=== PATIENT | female | born 1955 ===

== ENCOUNTER 2017-04-06 12:57 | Observation (INO) | payer MEDICAID ==
[2017-04-06 14:47] LABS: ADD MANUAL DIFF? NO
--- NOTE | 2017-04-06 14:51 | ED PDOC ---
Arrival/HPI - General Chief Complaint: GI Problem Time Seen by Provider: 04/06/17 13:55 Historian: Patient, Family - History of Present Illness Narrative History of Present Illness (Text): 04/06/17 14:49 62yr old female presents today with 3 episodes of bright red blood per rectum over the past 4 days. no fever/chills. no cp or sob. no vomiting/diarrhea. denies constipation. no fever/chills. pt denies abdominal pain. pt states she has noted changes in her stools over the past month. pt states her stool has become darker in color. pt states she has been having bright red bleeding when she has bowel movement. c/o increased fatigue. pt no urinary symptoms. pt also c/o bilateral ankle swelling. no leg pain. Symptom Onset: Gradual Symptom Course: Worsening Severity Level: 1 Past Medical History - Provider Review Nursing Documentation Reviewed: Yes - Travel History Have you recently traveled outside [place] w/in the past 3 mons?: No - Infectious Disease Hx of Infectious Diseases: None - Reproductive Menopause: Yes - Cardiac Hx Hypertension: Yes - Pulmonary Hx Respiratory Disorders: No - Neurological Hx Neurological Disorder: No - HEENT Hx HEENT Disorder: Yes Other/Comment: wears glasses - Renal Hx Renal Disorder: No - Endocrine/Metabolic Hx Endocrine Disorders: No - Hematological/Oncological Hx Blood Disorders: No - Integumentary Hx Dermatological Disorder: No - Musculoskeletal/Rheumatological Hx Musculoskeletal Disorders: No - Gastrointestinal Hx Gastrointestinal Disorders: No - Genitourinary/Gynecological Hx Genitourinary Disorders: No - Psychiatric Hx Psychophysiologic Disorder: No Hx Substance Use: No - Surgical History Other/Comment: vaginal birthsx2, chin tuck sx - Anesthesia Hx Anesthesia: Yes Hx Anesthesia Reactions: No Family/Social History - Physician Review Nursing Documentation Reviewed: Yes Family/Social History: Unknown Family HX Smoking Status: Never Smoked Hx Alcohol Use: No Hx Substance Use: No Allergies/Home Meds Allergies/Adverse Reactions: Allergies No Known Allergies Allergy (Verified 04/06/17 22:22) Home Medications: Home Meds Medication Instructions Recorded Confirmed Losartan [Cozaar] 100 mg PO DAILY 04/06/17 04/06/17 Review of Systems - Review of Systems Constitutional: Fatigue. absent: Fevers Respiratory: absent: SOB, Cough Cardiovascular: absent: Chest Pain, Palpitations Gastrointestinal: Abdominal Pain, Nausea, Vomiting, Hematochezia. absent: Constipation, Diarrhea, Appetite Changes, Hematemesis, Food Intolerance Genitourinary Female: absent: Dysuria Musculoskeletal: absent: Arthralgias, Back Pain, Neck Pain Skin: absent: Rash, Pruritis Neurological: absent: Headache, Dizziness Psychiatric: absent: Anxiety, Depression Physical Exam Vital Signs Reviewed: Yes Vital Signs Temp Pulse Resp BP Pulse Ox 04/06/17 17:30 89 04/06/17 15:00 92 H 19 138/67 92 L 04/06/17 13:11 97.8 F 109 H 21 187/75 H 99 Temperature: Afebrile Blood Pressure: Hypertensive Pulse: Tachycardic Respiratory Rate: Normal Appearance: Positive for: Well-Appearing, Non-Toxic, Comfortable Pain Distress: None Mental Status: Positive for: Alert and Oriented X 3 - Systems Exam Head: Present: Atraumatic Mouth: Present: Moist Mucous Membranes Neck: Present: Normal Range of Motion Respiratory/Chest: Present: Clear to Auscultation, Good Air Exchange. No: Respiratory Distress, Accessory Muscle Use Cardiovascular: Present: Regular Rate and Rhythm, Normal S1, S2. No: Murmurs Abdomen: Present: Normal Bowel Sounds. No: Tenderness, Distention, Peritoneal Signs, Rebound, Guarding Rectal: Present: Occult Blood, Melena, Hemorrhoids, Normal Rectal Tone. No: Gross Blood, Fissures Back: Present: Normal Inspection Upper Extremity: Present: Normal ROM Lower Extremity: Present: Normal ROM Neurological: Present: GCS=15, Speech Normal Skin: Present: Warm, Dry, Normal Color. No: Rashes Psychiatric: Present: Alert, Oriented x 3 Medical Decision Making ED Course and Treatment: 04/06/17 15:28 62yr old female with rectal bleeding x 3 days. Increased fatigue. cbc: hgb; 8.4 CMP; k; 3.5 type and screen: B+ pt wnl ptt wnl cxr; wnl ekg; normal sinus rhythm at 96 bpm normal axis normal intervals no ST elevations case discussed with dr. kirby; will admit to tele for rectal bleeding and anemia with heme + black stools. consult dr. stafford; call placed; awaiting call back. pt seen by medical oncologist; will transfuse 1 unit; consult GI. admit to tele. case discussed in depth with dr. david. 04/06/17 15:31 Impression; rectal bleeding, anemia admit to tele; - Lab Interpretations Lab Results: 04/06/17 14:40 04/06/17 14:40 Lab Results 04/06/17 14:40: Troponin I < 0.01 04/06/17 14:40: WBC 7.1, RBC 2.90 L, Hgb 8.4 L, Hct 25.2 L, MCV 86.9, MCH 29.0, MCHC 33.3, RDW 14.1, Plt Count 304, MPV 8.9, Gran % 60.5, Lymph % (Auto) 21.6 L , [place] % (Auto) 15.6 H, Eos % (Auto) 2.0, Baso % (Auto) 0.3, Gran # 4.32, Lymph # 1.5, [place] # 1.1 H, Eos # 0.1, Baso # 0.02 04/06/17 14:40: Blood Type B POSITIVE, Antibody Screen Negative, Crossmatch See Detail, BBK History Checked No verified bt 04/06/17 14:40: Sodium 137, Potassium 3.5 L, Chloride 102, Carbon Dioxide 27, Anion Gap 12, BUN 9, Creatinine 0.7, Est GFR ( Amer) > 60, Est GFR (Non- Af Amer) > 60, Random Glucose 100, Calcium 9.0, Total Bilirubin 0.5, AST 18, ALT 26, Alkaline Phosphatase 82, Total Protein 7.2, Albumin 3.8, Globulin 3.3, Albumin/Globulin Ratio 1.2 04/06/17 14:40: PT 11.3, INR 1.05, APTT 25.0 - RAD Interpretation Radiology Orders: 04/06/17 14:14 CHEST PORTABLE [RAD] Stat - Medication Orders Current Medication Orders: Acetaminophen (Tylenol 650 Mg Supp) 650 mg RC Q4H PRN PRN Reason: Fever >100.4 F Last Admin: 04/07/17 00:02 Dose: 650 mg Sodium Chloride (Sodium Chloride 0.9%) 1,000 mls @ 150 mls/hr IV .Q6H40M ACE Last Admin: 04/07/17 00:03 Dose: 150 mls/hr Vancomycin HCl (Vancomycin 1gm) 1 gm in 250 mls @ 167 mls/hr IVPB Q12H ACE PRN Reason: Protocol Piperacillin Sod/Tazobactam Sod (Zosyn 3.375 In Ns 100ml) 100 mls @ 200 mls/hr IVPB Q6 ACE Last Admin: 04/07/17 01:37 Dose: 200 mls/hr Ondansetron HCl (Zofran Inj) 4 mg IVP Q6 PRN PRN Reason: Nausea/Vomiting Pantoprazole Sodium (Protonix Inj) 40 mg IVP DAILY ACE Discontinued Medications Vancomycin HCl (Vancomycin 1gm) 1 gm in 250 mls @ 167 mls/hr IVPB STAT STA PRN Reason: Protocol Stop: 04/07/17 00:49 Last Admin: 04/07/17 00:03 Dose: 167 mls/hr Pantoprazole Sodium (Protonix Inj) 40 mg IVP STAT STA Stop: 04/06/17 15:17 Last Admin: 04/06/17 15:42 Dose: 40 mg Pantoprazole Sodium (Protonix Inj) 40 mg IVP Q12 ACE Pneumococcal Polyvalent Vaccine (Pneumovax 23 Vaccine) 0.5 ml IM .ONCE ONE Stop: 04/06/17 23:09 Potassium Chloride (K-Dur 20 Meq Er Tab) 20 meq PO STAT STA Stop: 04/06/17 17:24 Last Admin: 04/06/17 17:25 Dose: 20 meq Disposition/Present on Arrival - Present on Arrival Any Indicators Present on Arrival: No History of DVT/PE: No History of Uncontrolled Diabetes: No Urinary Catheter: No History of Decub. Ulcer: No History Surgical Site Infection Following: None - Disposition Have Diagnosis and Disposition been Completed?: Yes Diagnosis: Rectal bleeding, Anemia Disposition: HOSPITALIZED Disposition Time: 15:15 Patient Plan: Admission Patient Problems: Current Active Problems Problem Status Onset Anemia Acute Rectal bleeding Acute Condition: FAIR
--- NOTE | 2017-04-06 14:53 | RAD ---
HISTORY: rectal bleeding COMPARISON: No prior. FINDINGS: LUNGS: No active pulmonary disease. PLEURA: No significant pleural effusion identified, no pneumothorax apparent. CARDIOVASCULAR: Normal. OSSEOUS STRUCTURES: No significant abnormalities. VISUALIZED UPPER ABDOMEN: Normal. OTHER FINDINGS: None. IMPRESSION: No active disease.
[2017-04-06 14:56] LABS: BASO # 0.02 K/mm3 (0.0-2.0); BASO % 0.3 % (0.0-3.0); EOS # 0.1 (0.0-0.7); GRAN # 4.32 (1.4-6.5); GRAN % 60.5 % (50.0-68.0); HEMATOCRIT 25.2 % (36.0-48.0); LYMPH # 1.5 (1.2-3.4); LYMPH % 21.6 % (22.0-35.0); MEAN CELL VOLUME 86.9 fL (80.0-105.0); MEAN CORPUSCULAR HGB CONC 33.3 g/dl (31.0-37.0); MEAN PLATELET VOLUME 8.9 fl (7.0-11.0); MONO # 1.1 (0.1-0.6); MONO % 15.6 % (1.0-6.0); PLATELET COUNT 304 10^3/uL (120.0-450.0); RED CELL DISTRIBUTION WIDTH 14.1 % (11.5-14.5); WHITE BLOOD COUNT 7.1 10^3/ul (4.5-11.0)
[2017-04-06 15:03] LABS: ALB/GLOB RATIO 1.2 (1.1-1.8); ALKALINE PHOSPHATASE 82 U/L (38-133); ALT/SGPT 26 U/L (7-56); AST/SGOT 18 U/L (15-39); BILIRUBIN,TOTAL 0.5 mg/dL (0.2-1.3); BLOOD UREA NITROGEN 9 mg/dL (7-21); CARBON DIOXIDE 27 mmol/L (21-33); CHLORIDE 102 mmol/L (98-107); GFR AFRICAN-AMERICAN > 60; GLUCOSE,RANDOM 100 mg/dL (70-110); POTASSIUM 3.5 mmol/L (3.6-5.0); SODIUM 137 mmol/L (132-148); TOTAL PROTEIN 7.2 g/dL (5.8-8.3)
[2017-04-06 15:05] LABS: INR 1.05 (0.93-1.08)
--- NOTE | 2017-04-06 16:04 | CP.PCM.HP ---
<Mario Serrato - Last Filed: 04/06/17 17:21> History of Present Illness - History of Present Illness History of Present Illness: CC: Bloody Diarrhea 62yo F with PMHx of HTN here for evaluation of bloody BM. Patient reports one month hx of general fatigue. On Thursday, 3 days ago, Patient had a large episode of diarrhea with liquid bright red blood. Thursday, she had another episode of bloody diarrhea, another episode on thursday and another one early this morning. Patient states that the episodes have been clearing up with less red blood in each successive BM. Denies ever having similar episodes in the past. She also c/ o Nausea and one episode of vomit, non-bloody non-bilious on Thursday. She also c/o some chest pain described as pressure which radiates to the right shoulder and back, lasted a few mins which occurred on Thursday. No diaphoresis. Denies any weight loss. No Abdominal pain. Does c/o cough, non-productive. subjective fevers of 99F at home with associated chills. Denies any sick contacts. Denies ever having any colonoscopy or EGD done in the past. Denies hx of diverticulosis. Denies any vaginal bleeding. Rectal exam performed by ER staff, no gross blood. Hemacult positive. External hemorrhoids. PMHx: HTN PSHx: denies Family Hx: Dad - Heart disease Social Hx: Denies Tobacco, Denies ETOH, Denies illicit drugs. Lives in [place]. Visiting Daughter. NKDA Meds: Losartan 100mg PO Daily Present on Admission - Present on Admission Any Indicators Present on Admission: No Review of Systems - Review of Systems All systems: reviewed and no additional remarkable complaints except - Constitutional Constitutional: Chills, Fatigue, Fever, Lethargy. absent: Weight Loss - EENT Eyes: absent: Change in Vision Ears: absent: Ear Pain - Cardiovascular Cardiovascular: Chest Pain. absent: Diaphoresis, Dyspnea - Respiratory Respiratory: Cough. absent: Dyspnea - Gastrointestinal Gastrointestinal: Hematochezia, Nausea, Vomiting. absent: Abdominal Pain, Melena - Musculoskeletal Musculoskeletal: Back Pain - Neurological Neurological: absent: Focal Weakness - Psychiatric Psychiatric: absent: Anxiety, Depression Past Patient History - Infectious Disease Hx of Infectious Diseases: None - Past Medical History & Family History Past Family History: Reviewed and not pertinent - Past Social History Smoking Status: Never Smoked - CARDIAC Hx Hypertension: Yes - PULMONARY Hx Respiratory Disorders: No - NEUROLOGICAL Hx Neurological Disorder: No - HEENT Hx HEENT Problems: Yes Other/Comment: wears glasses - RENAL Hx Chronic Kidney Disease: No - ENDOCRINE/METABOLIC Hx Endocrine Disorders: No - HEMATOLOGICAL/ONCOLOGICAL Hx Blood Disorders: No - INTEGUMENTARY Hx Dermatological Problems: No - MUSCULOSKELETAL/RHEUMATOLOGICAL Hx Musculoskeletal Disorders: No - GASTROINTESTINAL Hx Gastrointestinal Disorders: No - GENITOURINARY/GYNECOLOGICAL Hx Genitourinary Disorders: No - PSYCHIATRIC Hx Psychophysiologic Disorder: No Hx Substance Use: No - SURGICAL HISTORY Other/Comment: vaginal birthsx2, chin tuck sx - ANESTHESIA Hx Anesthesia: Yes Hx Anesthesia Reactions: No Meds Allergies/Adverse Reactions: Allergies Allergy/AdvReac Type Severity Reaction Status Date / Time No Known Allergies Allergy Verified 04/06/17 22:22 Physical Exam - Constitutional Appears: Well, No Acute Distress - Head Exam Head Exam: ATRAUMATIC, NORMAL INSPECTION, NORMOCEPHALIC - Eye Exam Eye Exam: EOMI, Normal appearance. absent: Scleral icterus - ENT Exam ENT Exam: Mucous Membranes Moist - Respiratory Exam Respiratory Exam: Clear to Auscultation Bilateral. absent: Rales, Rhonchi, Wheezes - Cardiovascular Exam Cardiovascular Exam: Tachycardia, +S1, +S2. absent: JVD - GI/Abdominal Exam GI & Abdominal Exam: Soft. absent: Distended, Guarding, Rebound, Rigid, Tenderness - Extremities Exam Extremities exam: Positive for: normal inspection. Negative for: calf tenderness, pedal edema - Back Exam Back exam: NORMAL INSPECTION - Neurological Exam Neurological exam: Alert, Oriented x3 - Psychiatric Exam Psychiatric exam: Normal Affect, Normal Mood - Skin Skin Exam: Dry, Intact, Normal Color, Warm Results - Vital Signs Recent Vital Signs: Last Vital Signs Temp 97.8 F 04/06/17 13:11 Pulse 92 H 04/06/17 15:00 Resp 19 04/06/17 15:00 BP 138/67 04/06/17 15:00 Pulse Ox 92 L 04/06/17 15:00 - Labs Result Diagrams: 04/06/17 14:40 04/06/17 14:40 Labs: Laboratory Results - last 24 hr 04/06/17 04/06/17 04/06/17 14:40 14:40 14:40 WBC RBC Hgb Hct MCV MCH MCHC RDW Plt Count MPV Gran % Lymph % (Auto) [place] % (Auto) Eos % (Auto) Baso % (Auto) Gran # Lymph # [place] # Eos # Baso # PT 11.3 INR 1.05 APTT 25.0 Sodium 137 Potassium 3.5 L Chloride 102 Carbon Dioxide 27 Anion Gap 12 BUN 9 Creatinine 0.7 Est GFR ( Amer) > 60 Est GFR (Non-Af Amer) > 60 Random Glucose 100 Calcium 9.0 Total Bilirubin 0.5 AST 18 ALT 26 Alkaline Phosphatase 82 Total Protein 7.2 Albumin 3.8 Globulin 3.3 Albumin/Globulin Ratio 1.2 Blood Type B POSITIVE Antibody Screen Negative BBK History Checked No verified bt 04/06/17 14:40 WBC 7.1 RBC 2.90 L Hgb 8.4 L Hct 25.2 L MCV 86.9 MCH 29.0 MCHC 33.3 RDW 14.1 Plt Count 304 MPV 8.9 Gran % 60.5 Lymph % (Auto) 21.6 L [place] % (Auto) 15.6 H Eos % (Auto) 2.0 Baso % (Auto) 0.3 Gran # 4.32 Lymph # 1.5 [place] # 1.1 H Eos # 0.1 Baso # 0.02 PT INR APTT Sodium Potassium Chloride Carbon Dioxide Anion Gap BUN Creatinine Est GFR ( Amer) Est GFR (Non-Af Amer) Random Glucose Calcium Total Bilirubin AST ALT Alkaline Phosphatase Total Protein Albumin Globulin Albumin/Globulin Ratio Blood Type Antibody Screen BBK History Checked Assessment & Plan - Assessment and Plan (Free Text) Assessment: 62yo F with PMHx of HTN here for lower GI bleed 1. Lower GI Bleed multiple episodes of bloody BMs Tacycardic, normotensive Hb 8.4 Symptomatic anemia Transfuse 1u pRBCs Protonix 40mg IV daily NPO except meds IVF @ 150 Zofran prn monitor serial CBCs GI consult, Dr. Smith, appreciate recs 2. Atypical Chest pain r/o demand ischemia currently resolved f/u STAT EKG serial troponins 3. Hx of HTN hold home med, Losartan due acute blood loss 4. PPx SCDs Protonix 40mg IV Daily Discussed case with Dr. Guillermo Serrato PGY1 <Guillermo BELCHER,Ja - Last Filed: 04/07/17 11:53> Results - Vital Signs Recent Vital Signs: Last Vital Signs Temp 99.5 F 04/07/17 06:00 Pulse 91 H 04/07/17 06:00 Resp 20 04/07/17 06:00 BP 129/58 L 04/07/17 06:00 Pulse Ox 99 04/07/17 06:00 - Labs Result Diagrams: 04/07/17 08:15 04/07/17 08:15 Labs: Laboratory Results - last 24 hr 04/06/17 04/06/17 04/06/17 17:06 22:20 23:30 WBC 6.9 7.2 RBC 2.80 L 2.82 L Hgb 8.2 L 8.2 L Hct 24.5 L 24.6 L MCV 87.5 87.2 MCH 29.3 29.1 MCHC 33.5 33.3 RDW 14.2 14.1 Plt Count 318 320 MPV 8.8 8.8 Gran % 58.3 Lymph % (Auto) 28.0 [place] % (Auto) 11.5 H Eos % (Auto) 1.9 Baso % (Auto) 0.3 Gran # 4.21 Lymph # 2.0 [place] # 0.8 H Eos # 0.1 Baso # 0.02 Sodium Potassium Chloride Carbon Dioxide Anion Gap BUN Creatinine Est GFR ( Amer) Est GFR (Non-Af Amer) Random Glucose Calcium Phosphorus Magnesium Total Bilirubin AST ALT Alkaline Phosphatase Troponin I Total Protein Albumin Globulin Albumin/Globulin Ratio Blood Type Confirm B POSITIVE 04/07/17 04/07/17 08:15 08:15 WBC 7.0 RBC 3.18 L Hgb 9.3 L Hct 27.6 L MCV 86.8 MCH 29.2 MCHC 33.7 RDW 14.3 Plt Count 293 MPV 8.5 Gran % 61.4 Lymph % (Auto) 24.2 [place] % (Auto) 11.9 H Eos % (Auto) 2.4 Baso % (Auto) 0.1 Gran # 4.28 Lymph # 1.7 [place] # 0.8 H Eos # 0.2 Baso # 0.01 Sodium 141 Potassium 3.5 L Chloride 106 Carbon Dioxide 26 Anion Gap 13 BUN 7 Creatinine 0.8 Est GFR ( Amer) > 60 Est GFR (Non-Af Amer) > 60 Random Glucose 98 Calcium 8.4 Phosphorus 3.7 Magnesium 2.1 Total Bilirubin 0.9 AST 17 ALT 26 Alkaline Phosphatase 76 Troponin I < 0.01 Total Protein 6.8 Albumin 3.5 Globulin 3.3 Albumin/Globulin Ratio 1.1 Blood Type Confirm Attending/Attestation - Attestation I have fully participated in the care of the patient.: Yes I have reviewed all pertinent clinical information: Yes Notes (Text): Patient was seen and examined with medical appointment scheduler .Agreed with resident assessment and plan. 62 Yrs old Female with PMH of HTN is admitted with symptomatic anemia due to lower GI bleeding.Lower GI bleeding is not associated with pain, etiology Diverticulosis vs Interneal hemorrhoid.Patient will be admitted in the hospital , we will transfuse one unit of PRBC , will monitor hemoglobin and hematocrit and will get GI evaluation for Colonoscopy. Chest pain on side of chest with coughing is atypical in nature, EKG is negative for ischemic changes, we will get serial troponin and will monitor patient in tele. Management plan was discussed in detail with patient and son. Education was provided.
[2017-04-06] MEDS: Sodium Chloride 0.9% 1,000 ML IV SCH (16:45)
[2017-04-06] MEDS ORDERED: Potassium Chloride 20 mEq ER Tab PO STA (17:23)
[2017-04-06 22:39] LABS: HEMATOCRIT 24.5 % (36.0-48.0); MEAN CELL VOLUME 87.5 fL (80.0-105.0); MEAN CORPUSCULAR HEMOGLOBIN 29.3 pg (25.0-35.0); MEAN CORPUSCULAR HGB CONC 33.5 g/dl (31.0-37.0); MEAN PLATELET VOLUME 8.8 fl (7.0-11.0); RED CELL DISTRIBUTION WIDTH 14.2 % (11.5-14.5); WHITE BLOOD COUNT 6.9 10^3/ul (4.5-11.0)
[2017-04-06 23:08] VITALS: BMI 28.5
[2017-04-06] MEDS ORDERED: Pneumococcal 23-Valent Vaccine IM ONE (23:08)
[2017-04-06] MEDS ORDERED: Vancomycin 1gm in NS 250ml 1 GM/250 ML BAG IVPB STA (23:20)
[2017-04-06] MEDS ORDERED: Piperacillin/Tazobact 3.375 gm Inj IVPB SCH (23:30)
[2017-04-07] MEDS: Sodium Chloride 0.9% 1,000 ML IV SCH ×3 (00:03→12:51)
[2017-04-07 00:08] LABS: ADD MANUAL DIFF? NO
[2017-04-07 00:20] LABS: BASO # 0.02 K/mm3 (0.0-2.0); BASO % 0.3 % (0.0-3.0); EOS # 0.1 (0.0-0.7); EOS % 1.9 % (1.5-5.0); GRAN # 4.21 (1.4-6.5); GRAN % 58.3 % (50.0-68.0); HEMATOCRIT 24.6 % (36.0-48.0); MEAN CELL VOLUME 87.2 fL (80.0-105.0); MEAN CORPUSCULAR HEMOGLOBIN 29.1 pg (25.0-35.0); MEAN CORPUSCULAR HGB CONC 33.3 g/dl (31.0-37.0); MEAN PLATELET VOLUME 8.8 fl (7.0-11.0); MONO # 0.8 (0.1-0.6); MONO % 11.5 % (1.0-6.0); PLATELET COUNT 320 10^3/uL (120.0-450.0); RED CELL DISTRIBUTION WIDTH 14.1 % (11.5-14.5); WHITE BLOOD COUNT 7.2 10^3/ul (4.5-11.0)
[2017-04-07] MEDS: Piperacillin/Tazobact 3.375 gm 100 ML IVPB SCH ×2 (01:37→05:32)
[2017-04-07 03:39] VITALS: O2SAT 99
[2017-04-07 05:13] VITALS: RESP 20
[2017-04-07 08:19] LABS: ADD MANUAL DIFF? NO
[2017-04-07 08:25] LABS: BASO # 0.01 K/mm3 (0.0-2.0); BASO % 0.1 % (0.0-3.0); EOS # 0.2 (0.0-0.7); EOS % 2.4 % (1.5-5.0); GRAN # 4.28 (1.4-6.5); GRAN % 61.4 % (50.0-68.0); HEMATOCRIT 27.6 % (36.0-48.0); LYMPH # 1.7 (1.2-3.4); LYMPH % 24.2 % (22.0-35.0); MEAN CELL VOLUME 86.8 fL (80.0-105.0); MEAN CORPUSCULAR HEMOGLOBIN 29.2 pg (25.0-35.0); MEAN CORPUSCULAR HGB CONC 33.7 g/dl (31.0-37.0); MEAN PLATELET VOLUME 8.5 fl (7.0-11.0); MONO # 0.8 (0.1-0.6); MONO % 11.9 % (1.0-6.0); PLATELET COUNT 293 10^3/uL (120.0-450.0); RED CELL DISTRIBUTION WIDTH 14.3 % (11.5-14.5)
[2017-04-07 08:41] LABS: ALB/GLOB RATIO 1.1 (1.1-1.8); ALKALINE PHOSPHATASE 76 U/L (38-133); ALT/SGPT 26 U/L (7-56); AST/SGOT 17 U/L (15-39); BILIRUBIN,TOTAL 0.9 mg/dL (0.2-1.3); BLOOD UREA NITROGEN 7 mg/dL (7-21); CALCIUM 8.4 mg/dL (8.4-10.5); CARBON DIOXIDE 26 mmol/L (21-33); CHLORIDE 106 mmol/L (98-107); GFR AFRICAN-AMERICAN > 60; GLUCOSE,RANDOM 98 mg/dL (70-110); MAGNESIUM 2.1 mg/dL (1.7-2.2); PHOSPHOROUS 3.7 mg/dL (2.5-4.5); POTASSIUM 3.5 mmol/L (3.6-5.0); SODIUM 141 mmol/L (132-148); TOTAL PROTEIN 6.8 g/dL (5.8-8.3)
[2017-04-07 08:49] LABS: TROPONIN I < 0.01 ng/mL
--- NOTE | 2017-04-07 08:54 | CP.PCM.CON ---
<Kev Randolph - Last Filed: 04/07/17 12:54> History of Present Illness - History of Present Illness History of Present Illness: PGY4 GI Fellow Consult Note Patient is a 62yo female with PMHx significant for hypertension who presented to the ED with 3 days of rectal bleeding and fatigue. Patient is in from [place], [place] visiting her daughter. She states that Thursday afternoon she developed abdominal cramping and had an episode of loose/watery stool with bright red blood. She had 3 more episodes of diarrhea that day, each time with small amounts of fresh red blood. Thursday and Thursday she had one episode each and decided to come to the ED for further evaluation. She denies ever having symptoms like this in the past but does admit to having suffered with hemorrhoids previously. Denies any weight loss, abdominal pain, fever, chills, nausea, vomiting. She has never had screening colonoscopy. PMHx: HTN PSHx: Denies FHx: Father - hemorrhoids, CAD Social: Denies tobacco, EtOH or illicit drug use Endo: No prior endoscopic evaluation Review of Systems - Constitutional Constitutional: absent: Anorexia, Chills, Fever - EENT Eyes: absent: Change in Vision Nose/Mouth/Throat: absent: Sore Throat - Cardiovascular Cardiovascular: absent: Chest Pain, Dyspnea, Edema - Respiratory Respiratory: absent: Cough, Dyspnea, Hemoptysis - Gastrointestinal Gastrointestinal: Cramping, Diarrhea, Hematochezia. absent: Abdominal Pain, Bloating, Constipation, Dysphagia, Heartburn, Hematemesis, Loose Stools, Melena , Nausea, Temesmus, Vomiting - Genitourinary Genitourinary: absent: Dysuria, Urinary Frequency, Urinary Urgency - Musculoskeletal Musculoskeletal: absent: Back Pain, Neck Pain - Integumentary Integumentary: absent: New Lesions, Rash - Neurological Neurological: absent: Dizziness, Numbness, Focal Weakness - Psychiatric Psychiatric: absent: Anxiety, Depression - Endocrine Endocrine: absent: Polydipsia, Polyphagia, Polyuria - Hematologic/Lymphatic Hematologic: absent: Easy Bleeding, Easy Bruising, Lymphadenopathy Past Patient History - Infectious Disease Hx of Infectious Diseases: None - Past Medical History & Family History Past Family History: Reviewed and not pertinent - Past Social History Smoking Status: Never Smoked - CARDIAC Hx Hypertension: Yes - PULMONARY Hx Respiratory Disorders: No - NEUROLOGICAL Hx Neurological Disorder: No - HEENT Hx HEENT Problems: Yes Other/Comment: wears glasses - RENAL Hx Chronic Kidney Disease: No - ENDOCRINE/METABOLIC Hx Endocrine Disorders: No - HEMATOLOGICAL/ONCOLOGICAL Hx Blood Disorders: No - INTEGUMENTARY Hx Dermatological Problems: No - MUSCULOSKELETAL/RHEUMATOLOGICAL Hx Musculoskeletal Disorders: No - GASTROINTESTINAL Hx Gastrointestinal Disorders: No - GENITOURINARY/GYNECOLOGICAL Hx Genitourinary Disorders: No - PSYCHIATRIC Hx Psychophysiologic Disorder: No Hx Substance Use: No - SURGICAL HISTORY Other/Comment: vaginal birthsx2, chin tuck sx - ANESTHESIA Hx Anesthesia: Yes Hx Anesthesia Reactions: No Meds Allergies/Adverse Reactions: Allergies Allergy/AdvReac Type Severity Reaction Status Date / Time No Known Allergies Allergy Verified 04/06/17 22:22 - Medications Medications: Current Medications Acetaminophen (Tylenol 650 Mg Supp) 650 mg RC Q4H PRN PRN Reason: Fever >100.4 F Last Admin: 04/07/17 00:02 Dose: 650 mg Sodium Chloride (Sodium Chloride 0.9%) 1,000 mls @ 150 mls/hr IV .Q6H40M [facility] Last Admin: 04/07/17 06:27 Dose: Not Given Vancomycin HCl (Vancomycin 1gm) 1 gm in 250 mls @ 167 mls/hr IVPB Q12H ACE PRN Reason: Protocol Piperacillin Sod/Tazobactam Sod (Zosyn 3.375 In Ns 100ml) 100 mls @ 200 mls/hr IVPB Q6 [facility] Last Admin: 04/07/17 05:32 Dose: 200 mls/hr Ondansetron HCl (Zofran Inj) 4 mg IVP Q6 PRN PRN Reason: Nausea/Vomiting Pantoprazole Sodium (Protonix Inj) 40 mg IVP DAILY [facility] Physical Exam - Constitutional Appears: Non-toxic, No Acute Distress - Eye Exam Eye Exam: EOMI, PERRL - ENT Exam ENT Exam: Mucous Membranes Moist - Respiratory Exam Respiratory Exam: Clear to Auscultation Bilateral. absent: Rales, Rhonchi, Wheezes - Cardiovascular Exam Cardiovascular Exam: RRR, +S1, +S2 - GI/Abdominal Exam GI & Abdominal Exam: Normal Bowel Sounds, Soft. absent: Distended, Firm, Guarding, Organomegaly, Rigid, Tenderness - Rectal Exam Rectal Exam: Hemorrhoids (internal). absent: Black Stool, Bloody Stool Additional comments: brown stool - Extremities Exam Extremities exam: Positive for: normal inspection. Negative for: pedal edema - Neurological Exam Neurological exam: Alert, Oriented x3 - Psychiatric Exam Psychiatric exam: Normal Affect, Normal Mood - Skin Skin Exam: Dry, Warm Results - Vital Signs Recent Vital Signs: Last Vital Signs Temp 99.5 F 04/07/17 06:00 Pulse 91 H 04/07/17 06:00 Resp 20 04/07/17 06:00 BP 129/58 L 04/07/17 06:00 Pulse Ox 99 04/07/17 06:00 - Labs Result Diagrams: 04/07/17 08:15 04/07/17 08:15 Labs: Laboratory Results - last 24 hr 04/06/17 04/06/17 04/06/17 17:06 22:20 23:30 WBC 6.9 7.2 RBC 2.80 L 2.82 L Hgb 8.2 L 8.2 L Hct 24.5 L 24.6 L MCV 87.5 87.2 MCH 29.3 29.1 MCHC 33.5 33.3 RDW 14.2 14.1 Plt Count 318 320 MPV 8.8 8.8 Gran % 58.3 Lymph % (Auto) 28.0 Darke % (Auto) 11.5 H Eos % (Auto) 1.9 Baso % (Auto) 0.3 Gran # 4.21 Lymph # 2.0 Darke # 0.8 H Eos # 0.1 Baso # 0.02 Sodium Potassium Chloride Carbon Dioxide Anion Gap BUN Creatinine Est GFR ( Amer) Est GFR (Non-Af Amer) Random Glucose Calcium Phosphorus Magnesium Total Bilirubin AST ALT Alkaline Phosphatase Troponin I Total Protein Albumin Globulin Albumin/Globulin Ratio Blood Type Confirm B POSITIVE 04/07/17 04/07/17 08:15 08:15 WBC 7.0 RBC 3.18 L Hgb 9.3 L Hct 27.6 L MCV 86.8 MCH 29.2 MCHC 33.7 RDW 14.3 Plt Count 293 MPV 8.5 Gran % 61.4 Lymph % (Auto) 24.2 Darke % (Auto) 11.9 H Eos % (Auto) 2.4 Baso % (Auto) 0.1 Gran # 4.28 Lymph # 1.7 Darke # 0.8 H Eos # 0.2 Baso # 0.01 Sodium 141 Potassium 3.5 L Chloride 106 Carbon Dioxide 26 Anion Gap 13 BUN 7 Creatinine 0.8 Est GFR ( Amer) > 60 Est GFR (Non-Af Amer) > 60 Random Glucose 98 Calcium 8.4 Phosphorus 3.7 Magnesium 2.1 Total Bilirubin 0.9 AST 17 ALT 26 Alkaline Phosphatase 76 Troponin I < 0.01 Total Protein 6.8 Albumin 3.5 Globulin 3.3 Albumin/Globulin Ratio 1.1 Blood Type Confirm Assessment & Plan - Assessment and Plan (Free Text) Assessment: Patient is a 62yo female with PMHx significant for hypertension who presented to the ED with 3 days of rectal bleeding and fatigue. -Hematochezia, anemia -Internal hemorrhoids Plan: -Will start Anusol-HC BID for two weeks -No episodes of hematochezia yesterday or today -HGB stable, improved following 1 unit PRBCs yesterday -Iron studies would be compromised by recent transfusion -Diet as tolerated -Recommend outpatient follow up in [place] or in [place], [place] for EGD/screening colonoscopy - Date & Time Date: 04/07/17 Time: 07:10 <Anthony Baumann - Last Filed: 04/07/17 13:12> Meds - Medications Medications: Current Medications Acetaminophen (Tylenol 650 Mg Supp) 650 mg RC Q4H PRN PRN Reason: Fever >100.4 F Last Admin: 04/07/17 00:02 Dose: 650 mg Hydrocortisone (Anusol-Hc) 25 mg RC BID [facility] Stop: 04/21/17 10:01 Last Admin: 04/07/17 10:13 Dose: 25 mg Sodium Chloride (Sodium Chloride 0.9%) 1,000 mls @ 150 mls/hr IV .Q6H40M [facility] Last Admin: 04/07/17 12:51 Dose: 150 mls/hr Vancomycin HCl (Vancomycin 1gm) 1 gm in 250 mls @ 167 mls/hr IVPB Q12H ACE PRN Reason: Protocol Last Admin: 04/07/17 12:38 Dose: 167 mls/hr Piperacillin Sod/Tazobactam Sod (Zosyn 3.375 In Ns 100ml) 100 mls @ 200 mls/hr IVPB Q6 [facility] Last Admin: 04/07/17 05:32 Dose: 200 mls/hr Ondansetron HCl (Zofran Inj) 4 mg IVP Q6 PRN PRN Reason: Nausea/Vomiting Pantoprazole Sodium (Protonix Inj) 40 mg IVP DAILY [facility] Last Admin: 04/07/17 10:14 Dose: 40 mg Results - Vital Signs Recent Vital Signs: Last Vital Signs Temp 98.1 F 04/07/17 11:47 Pulse 89 04/07/17 11:47 Resp 20 04/07/17 11:47 BP 140/79 04/07/17 11:47 Pulse Ox 99 04/07/17 06:00 - Labs Result Diagrams: 04/07/17 08:15 04/07/17 08:15 Labs: Laboratory Results - last 24 hr 04/06/17 04/06/17 04/06/17 17:06 22:20 23:30 WBC 6.9 7.2 RBC 2.80 L 2.82 L Hgb 8.2 L 8.2 L Hct 24.5 L 24.6 L MCV 87.5 87.2 MCH 29.3 29.1 MCHC 33.5 33.3 RDW 14.2 14.1 Plt Count 318 320 MPV 8.8 8.8 Gran % 58.3 Lymph % (Auto) 28.0 Darke % (Auto) 11.5 H Eos % (Auto) 1.9 Baso % (Auto) 0.3 Gran # 4.21 Lymph # 2.0 Darke # 0.8 H Eos # 0.1 Baso # 0.02 Sodium Potassium Chloride Carbon Dioxide Anion Gap BUN Creatinine Est GFR ( Amer) Est GFR (Non-Af Amer) Random Glucose Calcium Phosphorus Magnesium Total Bilirubin AST ALT Alkaline Phosphatase Troponin I Total Protein Albumin Globulin Albumin/Globulin Ratio Blood Type Confirm B POSITIVE 04/07/17 04/07/17 08:15 08:15 WBC 7.0 RBC 3.18 L Hgb 9.3 L Hct 27.6 L MCV 86.8 MCH 29.2 MCHC 33.7 RDW 14.3 Plt Count 293 MPV 8.5 Gran % 61.4 Lymph % (Auto) 24.2 Darke % (Auto) 11.9 H Eos % (Auto) 2.4 Baso % (Auto) 0.1 Gran # 4.28 Lymph # 1.7 Darke # 0.8 H Eos # 0.2 Baso # 0.01 Sodium 141 Potassium 3.5 L Chloride 106 Carbon Dioxide 26 Anion Gap 13 BUN 7 Creatinine 0.8 Est GFR ( Amer) > 60 Est GFR (Non-Af Amer) > 60 Random Glucose 98 Calcium 8.4 Phosphorus 3.7 Magnesium 2.1 Total Bilirubin 0.9 AST 17 ALT 26 Alkaline Phosphatase 76 Troponin I < 0.01 Total Protein 6.8 Albumin 3.5 Globulin 3.3 Albumin/Globulin Ratio 1.1 Blood Type Confirm Attending/Attestation - Attestation I have personally seen and examined this patient.: Yes I have fully participated in the care of the patient.: Yes I have reviewed all pertinent clinical information: Yes Notes (Text): 04/07/17 13:11 62 year old female admitted with hematochezia and anemia. 1. Hematochezia 2. Anemia Plan: -bleeding has resolved for now -stable after transfusion -recommend outpatient egd/colonoscopy for further evaluation -patient prefers to do this at home in [place] -advance diet as tolerated -ok to dc from gi standpoint
[2017-04-07] MEDS ORDERED: Potassium Chloride 20 mEq ER Tab PO ONE (09:00)
--- NOTE | 2017-04-07 09:42 | RAD ---
HISTORY: 100.9*F COMPARISON: Earlier same day FINDINGS: LUNGS: No active pulmonary disease. PLEURA: No significant pleural effusion identified, no pneumothorax apparent. CARDIOVASCULAR: Normal. OSSEOUS STRUCTURES: No significant abnormalities. VISUALIZED UPPER ABDOMEN: Normal. OTHER FINDINGS: None. IMPRESSION: No active disease.
[2017-04-07] MEDS ORDERED: Vancomycin 1gm in NS 250ml 1 GM/250 ML BAG IVPB SCH (12:00)
[2017-04-07 13:56] LABS: URINE BILIRUBIN NEGATIVE (NEGATIVE); URINE BLOOD TRACE-INTACT (NEGATIVE); URINE GLUCOSE (UA) NEGATIVE (NEGATIVE); URINE KETONE NEGATIVE (NEGATIVE); URINE LEUKOCYTE ESTERASE SMALL Leu/uL (NEGATIVE); URINE PROTEIN NEGATIVE mg/dL (<30 mg/dL); URINE UROBILINOGEN 0.2 E.U./dL (<1 E.U./dL)
[2017-04-07 13:59] LABS: URINE APPEARANCE CLEAR (CLEAR); URINE COLOR YELLOW (YELLOW)
[2017-04-07 14:19] LABS: URINE RBC 0 - 2 /hpf (0-2)
[2017-04-07 14:20] LABS: URINE BACTERIA FEW (NEG)
--- NOTE | 2017-04-07 14:58 | CP.PCM.DIS ---
<Mario Serrato - Last Filed: 04/10/17 14:50> Provider - Provider Date of Admission: 04/06/17 16:10 Attending physician: Ja Li MD Primary care physician: Pamela Profile Required Consults: GI: Luis Time Spent in preparation of Discharge (in minutes): 45 Hospital Course - Lab Results Lab Results: Most Recent Lab Values WBC 7.0 10^3/ul (4.5-11.0) 04/07/17 08:15 RBC 3.18 10^6/uL (3.5-6.1) L 04/07/17 08:15 Hgb 9.3 gm/dL (12.0-16.0) L 04/07/17 08:15 Hct 27.6 % (36.0-48.0) L 04/07/17 08:15 MCV 86.8 fL (80.0-105.0) 04/07/17 08:15 MCH 29.2 pg (25.0-35.0) 04/07/17 08:15 MCHC 33.7 g/dl (31.0-37.0) 04/07/17 08:15 RDW 14.3 % (11.5-14.5) 04/07/17 08:15 Plt Count 293 10^3/uL (120.0-450.0) 04/07/17 08:15 MPV 8.5 fl (7.0-11.0) 04/07/17 08:15 Gran % 61.4 % (50.0-68.0) 04/07/17 08:15 Lymph % (Auto) 24.2 % (22.0-35.0) 04/07/17 08:15 Rosebud % (Auto) 11.9 % (1.0-6.0) H 04/07/17 08:15 Eos % (Auto) 2.4 % (1.5-5.0) 04/07/17 08:15 Baso % (Auto) 0.1 % (0.0-3.0) 04/07/17 08:15 Gran # 4.28 (1.4-6.5) 04/07/17 08:15 Lymph # 1.7 (1.2-3.4) 04/07/17 08:15 Rosebud # 0.8 (0.1-0.6) H 04/07/17 08:15 Eos # 0.2 (0.0-0.7) 04/07/17 08:15 Baso # 0.01 K/mm3 (0.0-2.0) 04/07/17 08:15 PT 11.3 Seconds (9.9-11.8) 04/06/17 14:40 INR 1.05 (0.93-1.08) 04/06/17 14:40 APTT 25.0 Seconds (23.7-30.8) 04/06/17 14:40 Sodium 141 mmol/L (132-148) 04/07/17 08:15 Potassium 3.5 mmol/L (3.6-5.0) L 04/07/17 08:15 Chloride 106 mmol/L (98-107) 04/07/17 08:15 Carbon Dioxide 26 mmol/L (21-33) 04/07/17 08:15 Anion Gap 13 (10-20) 04/07/17 08:15 BUN 7 mg/dL (7-21) 04/07/17 08:15 Creatinine 0.8 mg/dL (0.5-1.4) 04/07/17 08:15 Est GFR ( Amer) > 60 04/07/17 08:15 Est GFR (Non-Af Amer) > 60 04/07/17 08:15 Random Glucose 98 mg/dL (70-110) 04/07/17 08:15 Calcium 8.4 mg/dL (8.4-10.5) 04/07/17 08:15 Phosphorus 3.7 mg/dL (2.5-4.5) 04/07/17 08:15 Magnesium 2.1 mg/dL (1.7-2.2) 04/07/17 08:15 Total Bilirubin 0.9 mg/dL (0.2-1.3) 04/07/17 08:15 AST 17 U/L (15-39) 04/07/17 08:15 ALT 26 U/L (7-56) 04/07/17 08:15 Alkaline Phosphatase 76 U/L (38-133) 04/07/17 08:15 Troponin I < 0.01 ng/mL 04/07/17 08:15 Total Protein 6.8 g/dL (5.8-8.3) 04/07/17 08:15 Albumin 3.5 g/dL (3.0-4.8) 04/07/17 08:15 Globulin 3.3 gm/dL 04/07/17 08:15 Albumin/Globulin Ratio 1.1 (1.1-1.8) 04/07/17 08:15 Urine Color Yellow (YELLOW) 04/07/17 13:45 Urine Appearance Clear (CLEAR) 04/07/17 13:45 Urine pH 7.0 (4.7-8.0) 04/07/17 13:45 Ur Specific [place] 1.015 (1.005-1.035) 04/07/17 13:45 Urine Protein Negative mg/dL (<30 mg/dL) 04/07/17 13:45 Urine Glucose (UA) Negative mg/dL (NEGATIVE) 04/07/17 13:45 Urine Ketones Negative mg/dL (NEGATIVE) 04/07/17 13:45 Urine Blood Trace-intact (NEGATIVE) H 04/07/17 13:45 Urine Nitrate Negative (NEGATIVE) 04/07/17 13:45 Urine Bilirubin Negative (NEGATIVE) 04/07/17 13:45 Urine Urobilinogen 0.2 E.U./dL (<1 E.U./dL) 04/07/17 13:45 Ur Leukocyte Esterase Small Ayleen/uL (NEGATIVE) H 04/07/17 13:45 Urine RBC 0 - 2 /hpf (0-2) 04/07/17 13:45 Urine WBC 1 - 3 /hpf (0-6) 04/07/17 13:45 Ur Epithelial Cells 1 - 3 /hpf (0-5) 04/07/17 13:45 Urine Bacteria Few (NEG) 04/07/17 13:45 Blood Type B POSITIVE 04/06/17 14:40 Blood Type Confirm B POSITIVE 04/06/17 17:06 Antibody Screen Negative 04/06/17 14:40 Crossmatch See Detail 04/06/17 14:40 BBK History Checked No verified bt 04/06/17 14:40 - Hospital Course Hospital Course: Upon Admission: 62yo F with PMHx of HTN here for evaluation of rectal bleeding. Patient also with general fatigue for the past month. Patient reports an episode of diarrhea mixed with a large amount of bright red blood 3 days prior to arrival. Has had two more days of similar episodes with decreasing amount of blood noted. Denies previous colonoscopy. Hb on admission was 8.4. Received one unit PRBC with appropriate response. No EKG changes. Hemorrhoids noted on exam. Patient was admitted to [facility] for close monitoring. Patient had one episode of a low-grade fever overnight, patient does report recent hx of cough and sore throat. No episodes of bloody diarrhea while in-patient. GI consult was obtained, patient was started on Anusol-HC BID for two weeks. Hb was noted to be stable and patient's symptoms improved. Close out-patient follow-up was recommended to the patient. Patient is from [place] and states that she would like to follow up with her doctors back home. Patient was given the option to follow up with our Clinic and with our GI doctors for outpatient elective colonoscopy and completion of anemia work-up. Patient understands and agrees with plan. All questions answered. 1. Rectal bleed; Anusol bid x2 weeks; out-patient f/u 2. Anemia; secondary to above vs. iron studies; out-patient f/u; will benefit from screening colonoscopy 3. Hx of HTN; continue home meds 4. Cough; Augmentin x3 days Upon Discharge: Patient is cleared for discharge as per Dr. Li 1. Follow up with your primary care physician in [place] or return to the [facility] clinic. (Call for appointment) 2. You will benefit from out-patient screening Colonoscopy 3. Resume home meds. Increase home fiber intake to prevent constipation. 4. Take new meds as directed 5. Return to the ER with any concerning symptoms. New prescriptions: Anusol HC Supp 25mg SD BID #27/0 Augmentin 875mg PO BID #6/0 Discharge Exam - Head Exam Head Exam: ATRAUMATIC, NORMAL INSPECTION, NORMOCEPHALIC - Eye Exam Eye Exam: EOMI. absent: Scleral icterus - ENT Exam ENT Exam: Mucous Membranes Moist - Respiratory Exam Respiratory Exam: Clear to PA & Lateral, NORMAL BREATHING PATTERN, UNREMARKABLE. absent: Decreased Breath Sounds, Wheezes, Respiratory Distress - Cardiovascular Exam Cardiovascular Exam: RRR, +S1, +S2. absent: JVD - GI/Abdominal Exam GI & Abdominal Exam: Normal Bowel Sounds, Soft. absent: Distended, Firm, Guarding, Tenderness - Extremities Exam Extremities exam: normal inspection - Neurological Exam Neurological exam: Alert, Oriented x3 - Psychiatric Exam Psychiatric exam: Normal Affect, Normal Mood - Skin Skin Exam: Dry, Intact, Normal Color, Warm Discharge Plan - Discharge Medications Prescriptions: Amoxicillin/Clavulanate [Augmentin 875 MG-125 MG] 1 tab PO BID #6 tab Hydrocortisone [Anusol-Hc] 25 mg RC BID #27 sup - Follow Up Plan Condition: FAIR Disposition: HOME/ ROUTINE Instructions: Hemorrhoids (DC), Rectal Bleeding (DC), Anemia (DC) Additional Instructions: Patient is cleared for discharge as per Dr. Li 1. Follow up with your primary care physician in [place] or return to the [facility] clinic. (Call for appointment) 2. You will benefit from out-patient screening Colonoscopy 3. Resume home meds. Increase home fiber intake to prevent constipation. 4. Take new meds as directed 5. Return to the ER with any concerning symptoms. New prescriptions: Anusol HC Supp 25mg SD BID #27/0 Augmentin 875mg PO BID #6/0 Referrals: [facility] at [facility] [Outside] [facility] Profile Req, [Non-Staff] - <Guillermo BELCHER,Ja - Last Filed: 04/11/17 14:19> Provider - Provider Date of Admission: 04/06/17 16:10 Attending physician: Ja Li MD Primary care physician: [facility]IMARY CARE PROVIDER Hospital Course - Lab Results Lab Results: Micro Results 04/06/17 23:55 Blood-Venous Blood Culture - Preliminary NO GROWTH AFTER 4 DAYS 04/06/17 23:30 Blood-Venous Blood Culture - Preliminary NO GROWTH AFTER 4 DAYS Most Recent Lab Values WBC 7.0 10^3/ul (4.5-11.0) 04/07/17 08:15 RBC 3.18 10^6/uL (3.5-6.1) L 04/07/17 08:15 Hgb 9.3 gm/dL (12.0-16.0) L 04/07/17 08:15 Hct 27.6 % (36.0-48.0) L 04/07/17 08:15 MCV 86.8 fL (80.0-105.0) 04/07/17 08:15 MCH 29.2 pg (25.0-35.0) 04/07/17 08:15 MCHC 33.7 g/dl (31.0-37.0) 04/07/17 08:15 RDW 14.3 % (11.5-14.5) 04/07/17 08:15 Plt Count 293 10^3/uL (120.0-450.0) 04/07/17 08:15 MPV 8.5 fl (7.0-11.0) 04/07/17 08:15 Gran % 61.4 % (50.0-68.0) 04/07/17 08:15 Lymph % (Auto) 24.2 % (22.0-35.0) 04/07/17 08:15 Rosebud % (Auto) 11.9 % (1.0-6.0) H 04/07/17 08:15 Eos % (Auto) 2.4 % (1.5-5.0) 04/07/17 08:15 Baso % (Auto) 0.1 % (0.0-3.0) 04/07/17 08:15 Gran # 4.28 (1.4-6.5) 04/07/17 08:15 Lymph # 1.7 (1.2-3.4) 04/07/17 08:15 Rosebud # 0.8 (0.1-0.6) H 04/07/17 08:15 Eos # 0.2 (0.0-0.7) 04/07/17 08:15 Baso # 0.01 K/mm3 (0.0-2.0) 04/07/17 08:15 PT 11.3 Seconds (9.9-11.8) 04/06/17 14:40 INR 1.05 (0.93-1.08) 04/06/17 14:40 APTT 25.0 Seconds (23.7-30.8) 04/06/17 14:40 Sodium 141 mmol/L (132-148) 04/07/17 08:15 Potassium 3.5 mmol/L (3.6-5.0) L 04/07/17 08:15 Chloride 106 mmol/L (98-107) 04/07/17 08:15 Carbon Dioxide 26 mmol/L (21-33) 04/07/17 08:15 Anion Gap 13 (10-20) 04/07/17 08:15 BUN 7 mg/dL (7-21) 04/07/17 08:15 Creatinine 0.8 mg/dL (0.5-1.4) 04/07/17 08:15 Est GFR ( Amer) > 60 04/07/17 08:15 Est GFR (Non-Af Amer) > 60 04/07/17 08:15 Random Glucose 98 mg/dL (70-110) 04/07/17 08:15 Calcium 8.4 mg/dL (8.4-10.5) 04/07/17 08:15 Phosphorus 3.7 mg/dL (2.5-4.5) 04/07/17 08:15 Magnesium 2.1 mg/dL (1.7-2.2) 04/07/17 08:15 Total Bilirubin 0.9 mg/dL (0.2-1.3) 04/07/17 08:15 AST 17 U/L (15-39) 04/07/17 08:15 ALT 26 U/L (7-56) 04/07/17 08:15 Alkaline Phosphatase 76 U/L (38-133) 04/07/17 08:15 Troponin I < 0.01 ng/mL 04/07/17 08:15 Total Protein 6.8 g/dL (5.8-8.3) 04/07/17 08:15 Albumin 3.5 g/dL (3.0-4.8) 04/07/17 08:15 Globulin 3.3 gm/dL 04/07/17 08:15 Albumin/Globulin Ratio 1.1 (1.1-1.8) 04/07/17 08:15 Urine Color Yellow (YELLOW) 04/07/17 13:45 Urine Appearance Clear (CLEAR) 04/07/17 13:45 Urine pH 7.0 (4.7-8.0) 04/07/17 13:45 Ur Specific [place] 1.015 (1.005-1.035) 04/07/17 13:45 Urine Protein Negative mg/dL (<30 mg/dL) 04/07/17 13:45 Urine Glucose (UA) Negative mg/dL (NEGATIVE) 04/07/17 13:45 Urine Ketones Negative mg/dL (NEGATIVE) 04/07/17 13:45 Urine Blood Trace-intact (NEGATIVE) H 04/07/17 13:45 Urine Nitrate Negative (NEGATIVE) 04/07/17 13:45 Urine Bilirubin Negative (NEGATIVE) 04/07/17 13:45 Urine Urobilinogen 0.2 E.U./dL (<1 E.U./dL) 04/07/17 13:45 Ur Leukocyte Esterase Small Ayleen/uL (NEGATIVE) H 04/07/17 13:45 Urine RBC 0 - 2 /hpf (0-2) 04/07/17 13:45 Urine WBC 1 - 3 /hpf (0-6) 04/07/17 13:45 Ur Epithelial Cells 1 - 3 /hpf (0-5) 04/07/17 13:45 Urine Bacteria Few (NEG) 04/07/17 13:45 Blood Type B POSITIVE 04/06/17 14:40 Blood Type Confirm B POSITIVE 04/06/17 17:06 Antibody Screen Negative 04/06/17 14:40 Crossmatch See Detail 04/06/17 14:40 BBK History Checked No verified bt 04/06/17 14:40 Attending/Attestation - Attestation I have personally seen and examined this patient.: Yes I have fully participated in the care of the patient.: Yes I have reviewed all pertinent clinical information, including history, physical exam and plan: Yes Notes (Text): 04/11/17 14:14 Patient was seen and examined with medical office supervisor .Agreed with resident assessment and plan. 62 yrs old Female with PMHx of HTN was admitted for evaluation of rectal bleeding.She was found to have internal hemorrhoids, patient bleeding stopped.She received one unit of PRBC, she was evaluated by GI, out patient Colonoscopy has been recommended.She remain stable during hospitalization.She has low grade fever during hospitalization, She is having cough and yellowish sputum.Chest X ray is negative Pneumonia.UA was negative for UTI.Blood cultures are negative for any growth.This is likely due to Bronchitis.Patient is feeling better and will be discharged home on oral Augmentin. Management plan was discussed in detail with patient Education was provided. 04/11/17 14:19
[2017-04-07 17:55] VITALS: PULSE 120; TEMP 98.5
[2017-04-07 18:05] VITALS: BP 142/86
--- NOTE | 2017-04-07 23:10 | CARD ---
APPROVED REPORT EKG Measurement Heart [id number] <Conclusion> Normal sinus rhythm Normal ECG
== END 2017-04-07 19:45 | disposition home or self-care (01) ==
LOC: ED 12:57 → ERH 16:10 → 2RNO 18:13
PROVIDERS: ADMIT Internal Medicine; ATTEND Internal Medicine
DX: K92.1 Melena (principal); D64.9 Anemia, unspecified; I10 Essential (primary) hypertension; R53.83 Other fatigue; R07.89 Other chest pain; R19.7 Diarrhea, unspecified; K64.8 Other hemorrhoids; K64.4 Residual hemorrhoidal skin tags; Z82.49 Family history of ischemic heart disease and other diseases of the circulatory system
CPT/HCPCS: 36415; 36430; 71010; 80053; 81001; 83735; 84100; 84484; 85025; 85027; 85610; 85730; 86850; 86900; 86920; 87040; 93005; 96374; 99285; C9113; G0378; J2543; J7040; P9016

== ENCOUNTER 2017-04-20 18:01 | Emergency (ER) | payer MEDICAID ==
[2017-04-20 18:01] VITALS: BMI 28.5
[2017-04-20 18:41] VITALS: TEMP 99.1
[2017-04-20] MEDS ORDERED: Oxycodone/Acetaminophen 5/325 mg Tab PO STA (19:26)
[2017-04-20 20:12] LABS: ADD MANUAL DIFF? NO
[2017-04-20 20:27] LABS: ALB/GLOB RATIO 1.1 (1.1-1.8); ALKALINE PHOSPHATASE 76 U/L (38-133); ALT/SGPT 18 U/L (7-56); AST/SGOT 15 U/L (15-39); BILIRUBIN,TOTAL 0.4 mg/dL (0.2-1.3); BLOOD UREA NITROGEN 11 mg/dL (7-21); CALCIUM 8.8 mg/dL (8.4-10.5); CARBON DIOXIDE 27 mmol/L (21-33); CHLORIDE 101 mmol/L (98-107); GFR AFRICAN-AMERICAN > 60; GLUCOSE,RANDOM 118 mg/dL (70-110); POTASSIUM 3.6 mmol/L (3.6-5.0); SODIUM 137 mmol/L (132-148); TOTAL PROTEIN 7.2 g/dL (5.8-8.3)
[2017-04-20 20:28] LABS: BASO # 0.03 K/mm3 (0.0-2.0); BASO % 0.4 % (0.0-3.0); EOS # 0.1 (0.0-0.7); GRAN # 5.05 (1.4-6.5); GRAN % 66.2 % (50.0-68.0); LYMPH # 1.6 (1.2-3.4); LYMPH % 21.1 % (22.0-35.0); MEAN CELL VOLUME 84.8 fL (80.0-105.0); MEAN CORPUSCULAR HEMOGLOBIN 27.9 pg (25.0-35.0); MEAN CORPUSCULAR HGB CONC 32.9 g/dl (31.0-37.0); MEAN PLATELET VOLUME 8.8 fl (7.0-11.0); MONO # 0.9 (0.1-0.6); MONO % 11.3 % (1.0-6.0); PLATELET COUNT 392 10^3/uL (120.0-450.0); WHITE BLOOD COUNT 7.6 10^3/ul (4.5-11.0)
[2017-04-20 20:31] LABS: INR 1.04 (0.93-1.08); PARTIAL THROMBOPLASTIN TIME 29.4 Seconds (23.7-30.8)
--- NOTE | 2017-04-20 22:10 | ED PDOC ---
Arrival/HPI - General Chief Complaint: Lower Extremity Problem/Injury Time Seen by Provider: 04/20/17 19:25 Historian: Patient - History of Present Illness Narrative History of Present Illness (Text): 04/20/17 22:06 62yo female with PMHx of hypertension present with c/o severe b/l LE pain and nonprurirtic rash. the daughter who was by the bedside states patient was given blood transfusion here on 04/06/17. she started having b/l leg pain 5days after she was discharged. states generalized body rash started 2days ago. states painful to ambulate. Did not take any medication for symptoms. She reports fever at home. Denies abdominal pain, chest pain, SOB, diaphoresis, any other complaint. Past Medical History - Provider Review Nursing Documentation Reviewed: Yes - Infectious Disease Hx of Infectious Diseases: None - Cardiac Hx Hypertension: Yes - Pulmonary Hx Respiratory Disorders: No - Neurological Hx Neurological Disorder: No - HEENT Hx HEENT Disorder: Yes Other/Comment: wears glasses - Renal Hx Renal Disorder: No - Endocrine/Metabolic Hx Endocrine Disorders: No - Hematological/Oncological Hx Blood Transfusions: Yes - Integumentary Hx Dermatological Disorder: No - Musculoskeletal/Rheumatological Hx Musculoskeletal Disorders: No - Gastrointestinal Hx Gastrointestinal Disorders: Yes Other/Comment: GI BLEED - Genitourinary/Gynecological Hx Genitourinary Disorders: No - Psychiatric Hx Psychophysiologic Disorder: No Hx Substance Use: No - Surgical History Other/Comment: COSMETIC CHIN SURGERY - Anesthesia Hx Anesthesia: Yes Family/Social History - Physician Review Nursing Documentation Reviewed: Yes Family/Social History: Unknown Family HX Smoking Status: Never Smoked Hx Alcohol Use: No Hx Substance Use: No Allergies/Home Meds Allergies/Adverse Reactions: Allergies No Known Allergies Allergy (Verified 04/20/17 18:35) Home Medications: Home Meds Medication Instructions Recorded Confirmed Losartan [Cozaar] 100 mg PO DAILY 04/06/17 04/20/17 Review of Systems - Physician Review All systems were reviewed & negative as marked: Yes - Review of Systems Constitutional: Normal Eyes: Normal ENT: Normal Respiratory: Normal Cardiovascular: Normal Gastrointestinal: Normal Genitourinary Female: Normal Musculoskeletal: Arthralgias (B/L leg pain) Skin: Rash Neurological: Normal Endocrine: Normal Hemo/Lymphatic: Normal Psychiatric: Normal Physical Exam Vital Signs Reviewed: Yes Vital Signs Temp Pulse Resp BP Pulse Ox 04/20/17 22:26 73 18 142/85 100 04/20/17 18:36 99.1 F 110 H 17 164/66 H 98 Temperature: Afebrile Blood Pressure: Normal Pulse: Tachycardic Respiratory Rate: Normal Appearance: Positive for: Well-Appearing, Non-Toxic, Comfortable Pain Distress: None Mental Status: Positive for: Alert and Oriented X 3 - Systems Exam Head: Present: Atraumatic, Normocephalic Pupils: Present: PERRL Extroacular Muscles: Present: EOMI Conjunctiva: Present: Normal Mouth: Present: Moist Mucous Membranes Neck: Present: Normal Range of Motion Respiratory/Chest: Present: Clear to Auscultation, Good Air Exchange. No: Respiratory Distress, Accessory Muscle Use Cardiovascular: Present: Regular Rate and Rhythm, Normal S1, S2. No: Murmurs Abdomen: Present: Normal Bowel Sounds. No: Tenderness, Distention, Peritoneal Signs Back: Present: Normal Inspection Upper Extremity: Present: Normal Inspection. No: Cyanosis, Edema Lower Extremity: Present: CALF TENDERNESS, NORMAL PULSES, Normal ROM, Tenderness (B/L lower leg), Swelling (B/L ankle). No: Edema, Erythema, Temperature Abnormalties Neurological: Present: GCS=15, CN II-XII Intact, Speech Normal Skin: Present: Warm, Dry, Rashes (Fine erythematous nonraised macular rash noted diffusely), Normal Color Psychiatric: Present: Alert, Oriented x 3, Normal Insight, Normal Concentration Medical Decision Making ED Course and Treatment: 04/21/17 01:47 Pt's pain improved significantly on re evaluation. She was hemodynamically stable and in no distress. Per the US tech, doppler was negative for DVT b/l. Lab was unremarkable. Pt's symptoms appears days after blood transfusion. 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 the treatment recommendation for this is Tylenol. she was given Solu medrol in ED for the rash. All result was DW the pt. She was DC home and advised to take Tylenol every 6hrs as needed for the pain. Referred to the clinic. Advised TRT ED for any new or worsening symptoms - Lab Interpretations Lab Results: 04/20/17 20:00 04/20/17 20:00 Lab Results 04/20/17 20:00: Sodium 137, Potassium 3.6, Chloride 101, Carbon Dioxide 27, Anion Gap 13, BUN 11, Creatinine 0.8, Est GFR ( Amer) > 60, Est GFR (Non- Af Amer) > 60, Random Glucose 118 H, Calcium 8.8, Total Bilirubin 0.4, AST 15, ALT 18, Alkaline Phosphatase 76, Total Protein 7.2, Albumin 3.7, Globulin 3.5, Albumin/Globulin Ratio 1.1 04/20/17 20:00: PT 11.2, INR 1.04, APTT 29.4 04/20/17 20:00: WBC 7.6, RBC 3.30 L, Hgb 9.2 L, Hct 28.0 L, MCV 84.8, MCH 27.9, MCHC 32.9, RDW 14.0, Plt Count 392, MPV 8.8, Gran % 66.2, Lymph % (Auto) 21.1 L , [place] % (Auto) 11.3 H, Eos % (Auto) 1.0 L, Baso % (Auto) 0.4, Gran # 5.05, Lymph # 1.6, [place] # 0.9 H, Eos # 0.1, Baso # 0.03 - RAD Interpretation Radiology Orders: 04/20/17 19:26 DUPLEX LOWER EXTRM VEIN BILAT [US] Stat 04/20/17 19:27 ANKLE LEFT 3 VIEWS ROUTINE [RAD] Stat ANKLE RIGHT 3 VIEWS ROUTINE [RAD] Stat - Medication Orders Current Medication Orders: Discontinued Medications Methylprednisolone (Solu-Medrol) 125 mg IVP STAT STA Stop: 04/20/17 22:07 Last Admin: 04/20/17 22:19 Dose: 125 mg Ondansetron HCl (Zofran Inj) 4 mg IVP STAT STA Stop: 04/20/17 19:51 Last Admin: 04/20/17 20:12 Dose: 4 mg Oxycodone/Acetaminophen (Percocet 5/325 Mg Tab) 1 tab PO STAT STA Stop: 04/20/17 19:27 Last Admin: 04/20/17 20:12 Dose: 1 tab Disposition/Present on Arrival - Present on Arrival Any Indicators Present on Arrival: No History of DVT/PE: No History of Uncontrolled Diabetes: No Urinary Catheter: No History of Decub. Ulcer: No History Surgical Site Infection Following: None - Disposition Have Diagnosis and Disposition been Completed?: Yes Diagnosis: Hemolytic transfusion reaction, Rash, Leg pain Disposition: HOME/ ROUTINE Disposition Time: 22:15 Patient Plan: Discharge Condition: STABLE Discharge Instructions (ExitCare): Acute Rash (ED), Leg Pain (ED) Additional Instructions: Follow up with your Doctor/[facility] Return to ED for any new or worsening symptoms Referrals: Pamela Edwards, [Primary Care Provider] - Follow up with primary [facility] at [facility] [Outside] - Follow up with primary
[2017-04-20 22:28] VITALS: BP 142/85; PULSE 73; RESP 18; O2SAT 100
--- NOTE | 2017-04-21 07:59 | RAD ---
PROCEDURE: Right Ankle Radiographs. HISTORY: ankle pain COMPARISON: None FINDINGS: BONES: Normal. No fracture. JOINTS: Normal. No osteoarthritis. Ankle mortise maintained. Talar dome intact SOFT TISSUES: Normal. OTHER FINDINGS: None. IMPRESSION: Normal right ankle radiographs.
--- NOTE | 2017-04-21 07:59 | RAD ---
PROCEDURE: Left Ankle Radiographs. HISTORY: ankle pain COMPARISON: None FINDINGS: BONES: Normal. No fracture. JOINTS: Normal. No osteoarthritis. Ankle mortise maintained. Talar dome intact SOFT TISSUES: Normal. OTHER FINDINGS: None. IMPRESSION: Normal left ankle radiographs.
--- NOTE | 2017-04-21 12:17 | US ---
HISTORY: Leg pain and swelling. Evaluate for DVT PHYSICIAN(S): Efrain De Leon MD. TECHNIQUE: Duplex sonography and color-flow Doppler with graded compression were used to evaluate the deep venous systems of both lower extremities. FINDINGS: The visualized deep venous systems of both lower extremities are sonographically normal and compressible. Normal wave forms and augmentation are seen. There is no sonographic evidence for deep venous thrombosis in the visualized segments of both lower extremities. IMPRESSION: No sonographic evidence for deep venous thrombosis in the visualized segments of both lower extremities.
== END 2017-04-20 22:27 | disposition home or self-care (01) ==
LOC: ED 18:01
DX: T80.919A Hemolytic transfusion reaction, unspecified incompatibility, unspecified as acute or delayed, initial encounter (principal); R21 Rash and other nonspecific skin eruption; M79.605 Pain in left leg; M79.604 Pain in right leg; I10 Essential (primary) hypertension
CPT/HCPCS: 73610; 80053; 85025; 85610; 85730; 93970; 96374; 96375; 99284; J2405; J2930